=== PATIENT | female | born 1985 | race Caucasian/White ===

== ENCOUNTER 2017-12-05 11:32 | Outpatient (CLI) | payer OTHER, SELFPAY ==
--- NOTE | 2017-12-05 12:58 | PM.OBTRLD ---
Visit Information Visit Information Date of evaluation: 12/05/17 On-call OB Provider: Orin Higginbotham Reason for Evaluation: Yes non-stress test Comments/Additional reasons for admission: Patient with high blood pressure, with nausea, sweating, dizziness during a physical therapy. [place]. Patient is a 32-year-old 2 para 1 at 33 weeks 4 days. She has had been having [place] but no concerns of contractions. No change in vaginal discharge. No bleeding. Good movement. Vital Signs Vital Signs: Blood pressure 120/82, pulse of 95, temperature 97.8? Evaluation Evaluation Baseline heart rate: 135 Variability: Moderate (11-25) monitor accelerations: Present monitor decelerations: Absent Contraction Frequency (minutes): 3 Uterine Contraction Intensity: Mild Category of Tracing: I Diagnosis, Plan/Disposition Final Diagnosis (1) 33 weeks gestation of : Current Visit: Yes Status: Acute (2) Vasovagal near-syncope: Current Visit: Yes Status: Acute (3) Encounter for supervision of other normal , third trimester: Current Visit: Yes Status: Acute Plan/Disposition Plan: Patient with what sounds like a vasovagal episode during physical therapy. Evaluated here with blood pressures in the normal range and patient feeling well. She was discharged home to follow up with her primary OB provider at her regularly scheduled appointment.
== END 2017-12-05 12:45 | disposition home or self-care (01) ==
LOC: ED 11:35 → OB 14:51
PROVIDERS: Visit Provider Specialist
DX: Z34.83 Encounter for supervision of other normal pregnancy, third trimester (principal); R11.0 Nausea; R42 Dizziness and giddiness; Z3A.33 33 weeks gestation of pregnancy
CPT/HCPCS: 59025; G0378

== ENCOUNTER 2017-12-17 09:00 | Outpatient (RCR) | payer OTHER, SELFPAY ==
--- NOTE | 2017-12-03 15:00 | PT.OIE ---
Current Diagnoses Other specified related conditions, unspecified trimester (12/03/17) Other symptoms and signs involving the musculoskeletal system (12/03/17) state, incidental (12/03/17) Provider Visit Care Team Role Provider Type Reyna Lovett MD Attending Provider Non-Staff Specialty: Medical Address: [facility] [place], [address] Email: Physical Therapy Initial Evaluation PT-OP-A Visit Information Start: 12/03/17 09:28 Freq: Status: Active Protocol: Document 12/03/17 10:35 LRN (Rec: 12/03/17 12:29 LRN [id number]) Out-Patient Physical Therapy Visit Information Visit Information Visit Type Initial Evaluation Visit Note 05/10 Visit Start Time 10:35 Visit Stop Time 11:20 Total Visit Minutes 45 Visit Number 1 Number of DIRECT OF REAL ESTATE Visits 0 Evaluation Information Evaluation Date 12/03/17 PT-OP-B Current Condition Start: 12/03/17 09:28 Freq: Status: Active Protocol: Document 12/03/17 10:35 LRN (Rec: 12/03/17 12:29 LRN [id number]) Current Condition History of Current Condition Onset Date August 2017 Current Complaints Pt c/o sharp pains down the back of the legs, bilaterally. 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 The pain progressed from intermittent pain that alternated from side to side ( depending which side was on top in sidelie with the painful side on top) to now constant sharp low back pain. She is currently on maternity leave from her job and reports being on light duty. She has a 3.5 yr old son that she doesn't lift and carry. With her 1st she had a 1st degree tear, but no pain and stress incontinence. Prior Treatments and Tests She reports using a Belly Support brace, using heating pads, massages, and self stretches. She sleeps with a body pillow that helps some. Her self treatments provide pain relief for 2-3 days. She has taken antibiotics for UTI's. Treatment Goals Patient/Caregiver Goals Pt goal is to decrease the pain and sleep a little longer . Be able to turn with less pain. She can sleep 1-3 hours with sleep interruption due to both pain and the need to urinate. Prior Functional Status Baseline Function- ADL's Independent Baseline Function- Mobility Independent Baseline Function- Gait ~1/4 mile prior to onset of LBP and [place] contractions. Baseline Function- Recreation/Hobbies Home program of stretches. Baseline Function- Other Needs help putting pants on. 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 Functional Limitations- Mobility/Gait Can walk maximally ~1/4 mile. Functional Limitations- Work/School Currently on maternity leave due to her pain. 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 Lives in house with 13-14 stairs, with railing, and must stop 1/[address] to rest. Mother of a 3 yr old son. PT-OP-C Subjective Start: 12/03/17 09:28 Freq: Status: Active Protocol: Document 12/03/17 10:35 LRN (Rec: 12/03/17 12:29 LRN [id number]) Patient Questionnaires Oswestry Low Back Index Oswestry Score 62% Oswestry Impairment 60 to 79% Impaired (Score 60- 79) OP-PT Pain Assessment Pain Assessment Grid Paper Pain Assessment Grid Completed Yes Location Bilateral Upper Posterior Thigh Pain Location Details Posterior and Lateral thighs Intensity 4 Scale Used Numeric (1 - 10) Description Sharp Frequency Intermittent Variations/Patterns Pain worse with movement and with sitting > 1 hr, and prolonged positioning Pain Alleviating Factors Cold Lying Supine Other Pain Alleviating Factors Temporary relief with supine lying. Bilateral Lower Posterior Back Pain Location Details Low back along the Iliac Crest and Sacral region Intensity 8 Scale Used Numeric (1 - 10) Description Sharp Frequency Constant Radiating Location Back of thighs Variations/Patterns Pain worse with movement and with sitting > 1 hr, and prolonged positioning Pain Alleviating Factors Cold Lying Supine Other Pain Alleviating Factors Temporary relief with supine lying. Patient Stated Pain Goal Decrease pain Pain Behaviors Pain Behaviors Facial Grimacing PT-OP-G Mobility & Gait Start: 12/03/17 09:28 Freq: Status: Active Protocol: Document 12/03/17 10:35 LRN (Rec: 12/03/17 12:29 LRN [id number]) OP Mobility Evaluation Bed Mobility Rolling Independent. Pain behavior of grimacing. Supine to and from Sit Independent. Pain behavior of grimacing. Transfers Sit to Stand Independent. Pain behavior of grimacing. OP Gait Assessment Gait Gait Assistance Required: Independent Able to Maintain Weight Bearing Status Yes During Gait Assistive Devices Assistive Device None Gait Deviations General Gait Pattern Lateral Trunk Lean Factors Limiting Gait Function Factors Limiting Gait Function Pain Comments Gait Comments Trendelenburg type gait to the right. PT-OP-H Neuro Start: 12/03/17 09:28 Freq: Status: Active Protocol: Document 12/03/17 10:35 LRN (Rec: 12/03/17 12:29 LRN [id number]) Sensation Evaluation Gross Sensation Gross Sensation WNL PT-OP-I Pelvic Floor Start: 12/03/17 09:28 Freq: Status: Active Protocol: Document 12/03/17 10:35 LRN (Rec: 12/03/17 12:29 LRN [id number]) Pelvic Floor Assessment Urine Leakage Size Small Leakage Cause Exercise PT-OP-J Posture/Palpation/Skin Start: 12/03/17 09:28 Freq: Status: Active Protocol: Document 12/03/17 10:35 LRN (Rec: 12/03/17 12:29 LRN [id number]) Posture Evaluation Position Standing Evaluation View Posterior, Anterior, & Lateral Head/C-Spine Posture Neutral Position T-Spine Posture Flattened L-Spine Posture Increased Lordosis Shoulder Posture (R) Elevated Pelvis Posture (L) PSIS Posterior (L) ASIS Posterior Knee Posture (L) Genu Recurvatum (R) Genu Recurvatum Ankle/Foot Posture (L) Calcaneal Eversion (R) Calcaneal Eversion Palpation Assessment Location One Palpation Location Low Back Palpation Findings Tenderness Palpation Details Sacral PA and at Bilateral SI joint line. PT-OP-K Range of Motion Start: 12/03/17 09:28 Freq: Status: Active Protocol: Document 12/03/17 10:35 LRN (Rec: 12/03/17 12:29 LRN [id number]) Hip Goniometric Range of Motion Hip ROM Limitations Hip ROM Limitations Pain Comments Bilateral hip PSLR is 60 deg's with onset of sharp pains. Knee Goniometric Range of Motion Knee ROM Limitations Comments NONE PT-OP-M Strength Start: 08/07/18 09:28 Freq: Status: Active Protocol: Document 12/03/17 10:35 LRN (Rec: 12/03/17 12:29 LRN [id number]) Trunk Strength Trunk Manual Muscle Testing Core Stabilization Pt did not demonstrate ability to maintain neutral spine position with moving. Pt was able to demonstrate a TA contraction in sidelie. Hip Strength Hip Manual Muscle Testing Right Reason Not Measured Pain Comments Isometric hip AB & AD was 4/5, limited by pain. Left Reason Not Measured Pain Comments Isometric hip AB & AD was 4/5, limited by pain. PT-OP-Q Treatments Start: 12/03/17 09:28 Freq: Status: Active Protocol: Document 12/03/17 10:35 LRN (Rec: 12/03/17 12:29 LRN [id number]) Therapeutic Exercises Sidelying Exercises 1 Sidelying Exercise Name TA contraction Side bilateral Comments Training Other Exercises 2 Other Exercise Name Stretching Comments Rock Back stretch 1 Other Exercise Name 4-Point ex Side bilateral Comments TA Contraction Therapeutic Activity Therapeutic Activity 1 Name Transfers & Positioning Comments Training for Semi-sidelie for sleeping and Supine > Sit Log roll training. Self-Care/Home Management Treatment Education Patient Education Home Exercise Program Pain Management Posture Activities Self-Care/Home Management Activities Issued and Reviewed 4-pt TA contraction, and posturing against a wall. I/S pt in use of cryotherapy at home for the pain. PT-OP-T Assessment and Plan Start: 12/03/17 09:28 Freq: Status: Active Protocol: Document 12/03/17 10:35 LRN (Rec: 12/03/17 12:29 LRN [id number]) Physical Therapy Assessment Rehab Potential Rehabilitation Potential Fair Evaluation Complexity Number of Personal Factors/Comorbidities 3 or More Number of Body Systems Impaired 4 or More Clinical Presentation at Evaluation Unstable Impairments Impairments Activity Tolerance Functional Activities Functional Mobility Pain Posture ROM Soft Tissue Mobility Strength Transfers Other Concerns Age Related Concerns Impact on work and family. Barriers to Rehabilitation Progressing Goals Five Impairment Poor body mechanics Short Term Goal (STG) Pt will be educated in proper body mechanics. STG Duration 12/23/17 (3 weeks) Four Impairment Poor posture Short Term Goal (STG) Pt will be educated in proper standing/sitting posture to minimize onset of pain with prolonged positioning. STG Duration 12/10/17 Three Impairment Pain limiting sleep Short Term Goal (STG) Pt able to position in bed comfortably to go to sleep. STG Duration 12/23/17 (3 weeks) Director Of Health Education Goal (LTG) Increase pelvic/trunk stability to improve pt's tolerance to sleep and improved tolerance to static positioning in bed. LTG Duration 01/13/18 (6 weeks) Two Impairment Difficulty dressing (donning pants) due to poor hip mobility. Short Term Goal (STG) Pt educated in HEP to improve hip mobility for ease of donning pants. STG Duration 12/23/17 (3 weeks) One Impairment Patient lacks appropriate HEP Mcc Goal (LTG) Pt educated in self care HEP for pelvic/trunk stability. 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 Pt may benefit from a SI Belt for pelvic stability in addition to her belly support belt. Aquatic exercise would be a good method of achieving stability now that she is almost 33 weeks into her ; therefore we will try to get her into one session before her due date. Therapy 3x/week would be most beneficial, but because of her distance of travel we will see the pt 2x/week for her rehabilitation. I would recommend the pt be referred back to physical therapy post- when she is medically appropriate for further core/ pelvic stabilization and possibly Pelvic Floor rehabilitation. Physical Therapy Plan Frequency and Duration Frequency of Treatment 2x/Week Plan of Care Start Date 12/03/17 Plan of Care End Date 01/14/18 Therapeutic Interventions Therapeutic Interventions Aquatic Therapy Home Exercise Program Manual Therapy Neuromuscular Re-education Patient/Caregiver Education Self-Care/Home Management Soft Tissue Mobilization Taping Therapeutic Activities Therapeutic Exercises Modalities Cold Pack/Ice Massage Next Visit Focus/Plan Next Note Type Treatment Note Next Visit Plan Check hip AB ROM. Progress Pelvic and core stabilization in private room if needed (LE Roll in/outs, TA strengthening , LB flexion stretching), progress to Shuttle, Dual [place], Sit bike; f/b trunk flex stretching. Add LE neural stretch and if needed stretch to hip AD's. End with STM of LB/SIJ & manual mob of sacrum into extension and ice if needed.
--- NOTE | 2017-12-03 16:49 | PT.OPPOC ---
Current Diagnoses Other specified related conditions, unspecified trimester (12/03/17) Other symptoms and signs involving the musculoskeletal system (12/03/17) state, incidental (12/03/17) Provider Visit Care Team Role Provider Type Reyna Lovett MD Attending Provider Non-Staff Specialty: Medical Address: [facility] [place], [address] Email: Plan Of Care PT-OP-T Assessment and Plan Start: 12/03/17 09:28 Freq: Status: Active Protocol: Document 12/03/17 10:35 LRN (Rec: 12/03/17 12:29 LRN [id number]) Physical Therapy Assessment Rehab Potential Rehabilitation Potential Fair Evaluation Complexity Number of Personal Factors/Comorbidities 3 or More Number of Body Systems Impaired 4 or More Clinical Presentation at Evaluation Unstable Impairments Impairments Activity Tolerance Functional Activities Functional Mobility Pain Posture ROM Soft Tissue Mobility Strength Transfers Other Concerns Age Related Concerns Impact on work and family. Barriers to Rehabilitation Progressing Goals Five Impairment Poor body mechanics Short Term Goal (STG) Pt will be educated in proper body mechanics. STG Duration 12/23/17 (3 weeks) Four Impairment Poor posture Short Term Goal (STG) Pt will be educated in proper standing/sitting posture to minimize onset of pain with prolonged positioning. STG Duration 12/10/17 Three Impairment Pain limiting sleep Short Term Goal (STG) Pt able to position in bed comfortably to go to sleep. STG Duration 12/23/17 (3 weeks) Care Home Goal (LTG) Increase pelvic/trunk stability to improve pt's tolerance to sleep and improved tolerance to static positioning in bed. LTG Duration 01/13/18 (6 weeks) Two Impairment Difficulty dressing (donning pants) due to poor hip mobility. Short Term Goal (STG) Pt educated in HEP to improve hip mobility for ease of donning pants. STG Duration 12/23/17 (3 weeks) One Impairment Patient lacks appropriate HEP Services Advisor Goal (LTG) Pt educated in self care HEP for pelvic/trunk stability. 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 Pt may benefit from a SI Belt for pelvic stability in addition to her belly support belt. Aquatic exercise would be a good method of achieving stability now that she is almost 33 weeks into her ; therefore we will try to get her into one session before her due date. Therapy 3x/week would be most beneficial, but because of her distance of travel we will see the pt 2x/week for her rehabilitation. I would recommend the pt be referred back to physical therapy post- when she is medically appropriate for further core/ pelvic stabilization and possibly Pelvic Floor rehabilitation. Physical Therapy Plan Frequency and Duration Frequency of Treatment 2x/Week Plan of Care Start Date 12/03/17 Plan of Care End Date 01/14/18 Therapeutic Interventions Therapeutic Interventions Aquatic Therapy Home Exercise Program Manual Therapy Neuromuscular Re-education Patient/Caregiver Education Self-Care/Home Management Soft Tissue Mobilization Taping Therapeutic Activities Therapeutic Exercises Modalities Cold Pack/Ice Massage Next Visit Focus/Plan Next Note Type Treatment Note Next Visit Plan Check hip AB ROM. Progress Pelvic and core stabilization in private room if needed (LE Roll in/outs, TA strengthening , LB flexion stretching), progress to Shuttle, Dual [place], Sit bike; f/b trunk flex stretching. Add LE neural stretch and if needed stretch to hip AD's. End with STM of LB/SIJ & manual mob of sacrum into extension and ice if needed. Plan of Care Dates Plan of Care Start Date 12/03/17 Plan of Care End Date 01/14/18 Please Sign and Return: I have reviewed this Plan of Care and certify that the skilled therapy services above are required to meet the patient?s needs. Physician Signature Date Printed Name and Credentials Clinical Instructor Signature Printed Name and Credentials
[2017-12-05 10:39] VITALS: BP 140/90; O2SAT 95
[2017-12-05 12:58] VITALS: BP 140/90; PULSE 103; O2SAT 95
--- NOTE | 2017-12-05 13:48 | PT.OTN ---
Current Diagnoses Other specified related conditions, unspecified trimester (12/05/17) state, incidental (12/05/17) Physical Therapy Treatment Note PT-OP-A Visit Information Start: 12/03/17 09:28 Freq: Status: Active Protocol: Document 12/05/17 10:39 LRN (Rec: 12/05/17 11:20 LRN [id number]) Out-Patient Physical Therapy Visit Information Visit Information Visit Type Treatment Note Visit Note 06/10 Visit Start Time 10:39 Visit Stop Time 11:30 Total Visit Minutes 51 Visit Number 2 Number of MANAGER ADULT Visits 0 Evaluation Information Evaluation Date 12/03/17 PT-OP-B Current Condition Start: 12/03/17 09:28 Freq: Status: Active Protocol: Document 12/03/17 10:35 LRN (Rec: 12/03/17 12:29 LRN [id number]) Current Condition History of Current Condition Onset Date August 2017 Current Complaints Pt c/o sharp pains down the back of the legs, bilaterally. 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 The pain progressed from intermittent pain that alternated from side to side ( depending which side was on top in sidelie with the painful side on top) to now constant sharp low back pain. She is currently on maternity leave from her job and reports being on light duty. She has a 3.5 yr old son that she doesn't lift and carry. With her 1st she had a 1st degree tear, but no pain and stress incontinence. Prior Treatments and Tests She reports using a Belly Support brace, using heating pads, massages, and self stretches. She sleeps with a body pillow that helps some. Her self treatments provide pain relief for 2-3 days. She has taken antibiotics for UTI's. Treatment Goals Patient/Caregiver Goals Pt goal is to decrease the pain and sleep a little longer . Be able to turn with less pain. She can sleep 1-3 hours with sleep interruption due to both pain and the need to urinate. Prior Functional Status Baseline Function- ADL's Independent Baseline Function- Mobility Independent Baseline Function- Gait ~1/4 mile prior to onset of LBP and [place] contractions. Baseline Function- Recreation/Hobbies Home program of stretches. Baseline Function- Other Needs help putting pants on. Current Functional Impairments (Reported) Functional Limitations- ADL's Sleeping, sits 1/2 - 1 hr, stand 1 hr to cook helper pastry, needs help with donning pants. Functional Limitations- Mobility/Gait Can walk maximally ~1/4 mile. Functional Limitations- Work/School Currently on maternity leave due to her pain. 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 Lives in house with 13-14 stairs, with railing, and must stop 1/[address] to rest. Mother of a 3 yr old son. PT-OP-C Subjective Start: 12/03/17 09:28 Freq: Status: Active Protocol: Document 12/05/17 10:39 LRN (Rec: 12/05/17 11:20 LRN [id number]) OP-PT Subjective Patient Comments Patient Comments NO new complaints, pt 9 minutes late for appt. PT-OP-G Mobility & Gait Start: 12/03/17 09:28 Freq: Status: Active Protocol: Document 12/03/17 10:35 LRN (Rec: 12/03/17 12:29 LRN [id number]) OP Mobility Evaluation Bed Mobility Rolling Independent. Pain behavior of grimacing. Supine to and from Sit Independent. Pain behavior of grimacing. Transfers Sit to Stand Independent. Pain behavior of grimacing. OP Gait Assessment Gait Gait Assistance Required: Independent Able to Maintain Weight Bearing Status Yes During Gait Assistive Devices Assistive Device None Gait Deviations General Gait Pattern Lateral Trunk Lean Factors Limiting Gait Function Factors Limiting Gait Function Pain Comments Gait Comments Trendelenburg type gait to the right. PT-OP-H Neuro Start: 12/03/17 09:28 Freq: Status: Active Protocol: Document 12/05/17 10:39 LRN (Rec: 12/05/17 13:40 LRN [id number]) Vital Signs Blood Pressure Sitting Blood Pressure (90/60-120/80 mmHg) 140/90 H Blood Pressure Source Manual Cuff Right Upper Extremity Oxygen Pulse Oximetry with Activity (%) (95-100 95 %) Oxygen Delivery Method Room Air Comments Vital Signs Comments After 5' Rest from 1st BP reading in Slight recline: BP 145/98, HR 107-113 After 8' Rest in Sit with legs elevated BP 140/90, HR 103-114 PT-OP-I Pelvic Floor Start: 12/03/17 09:28 Freq: Status: Active Protocol: Document 12/03/17 10:35 LRN (Rec: 12/03/17 12:29 LRN [id number]) Pelvic Floor Assessment Urine Leakage Size Small Leakage Cause Exercise PT-OP-J Posture/Palpation/Skin Start: 12/03/17 09:28 Freq: Status: Active Protocol: Document 12/03/17 10:35 LRN (Rec: 12/03/17 12:29 LRN [id number]) Posture Evaluation Position Standing Evaluation View Posterior, Anterior, & Lateral Head/C-Spine Posture Neutral Position T-Spine Posture Flattened L-Spine Posture Increased Lordosis Shoulder Posture (R) Elevated Pelvis Posture (L) PSIS Posterior (L) ASIS Posterior Knee Posture (L) Genu Recurvatum (R) Genu Recurvatum Ankle/Foot Posture (L) Calcaneal Eversion (R) Calcaneal Eversion Palpation Assessment Location One Palpation Location Low Back Palpation Findings Tenderness Palpation Details Sacral PA and at Bilateral SI joint line. PT-OP-K Range of Motion Start: 12/03/17 09:28 Freq: Status: Active Protocol: Document 12/03/17 10:35 LRN (Rec: 12/03/17 12:29 LRN [id number]) Hip Goniometric Range of Motion Hip ROM Limitations Hip ROM Limitations Pain Comments Bilateral hip PSLR is 60 deg's with onset of sharp pains. Knee Goniometric Range of Motion Knee ROM Limitations Comments NONE PT-OP-M Strength Start: 12/03/17 09:28 Freq: Status: Active Protocol: Document 12/03/17 10:35 LRN (Rec: 12/03/17 12:29 LRN [id number]) Trunk Strength Trunk Manual Muscle Testing Core Stabilization Pt did not demonstrate ability to maintain neutral spine position with moving. Pt was able to demonstrate a TA contraction in sidelie. Hip Strength Hip Manual Muscle Testing Right Reason Not Measured Pain Comments Isometric hip AB & AD was 4/5, limited by pain. Left Reason Not Measured Pain Comments Isometric hip AB & AD was 4/5, limited by pain. PT-OP-Q Treatments Start: 12/03/17 09:28 Freq: Status: Active Protocol: Document 12/05/17 10:39 LRN (Rec: 12/05/17 11:20 LRN [id number]) Therapeutic Exercises Supine Exercises 1 Supine Exercise Name Stretch hip AD for ROM check Side bilateral Reps/Minutes 2' Sidelying Exercises 1 Sidelying Exercise Name TA w/Clamshell Side left Comments Stopped due to pain on bottom hip Sitting Exercises 1 Sitting Exercise Name Deep breathing with LE Roll in /out Reps/Minutes 10x Comments Extra time taken to review deep breathing & w/ex for pt's tolerance. Manual Therapy Treatment Soft Tissue Mobilization 1 Body Location Sacral lateral borders and upper gluteals Mobilization Type Strumming Sustained Pressure Comments Prone on prone pillow. Joint Mobilizations 1 Joint MFR to correct a flexed Sacrum Grade II Body Position Prone on pillow Comments 3x with deep breaths, painfree PT-OP-T Assessment and Plan Start: 12/03/17 09:28 Freq: Status: Active Protocol: Document 12/05/17 10:39 LRN (Rec: 12/05/17 11:20 LRN [id number]) Physical Therapy Assessment Goals Five Impairment Poor body mechanics Short Term Goal (STG) Pt will be educated in proper body mechanics. STG Duration 12/23/17 (3 weeks) Four Impairment Poor posture Short Term Goal (STG) Pt will be educated in proper standing/sitting posture to minimize onset of pain with prolonged positioning. STG Duration 12/10/17 Three Impairment Pain limiting sleep Short Term Goal (STG) Pt able to position in bed comfortably to go to sleep. STG Duration 12/23/17 (3 weeks) Assisted Goal (LTG) Increase pelvic/trunk stability to improve pt's tolerance to sleep and improved tolerance to static positioning in bed. LTG Duration 01/13/18 (6 weeks) Two Impairment Difficulty dressing (donning pants) due to poor hip mobility. Short Term Goal (STG) Pt educated in HEP to improve hip mobility for ease of donning pants. STG Duration 12/23/17 (3 weeks) One Impairment Patient lacks appropriate HEP Assisted Goal (LTG) Pt educated in self care HEP for pelvic/trunk stability. LTG Duration 01/13/18 (6 weeks) Assessment Summary Assessment Pt was able to perform sitting LE roll in/out with comfort with practice. Pt became lightheaded and nauseous while in prone on pillow after STM & JMT of sacrum. Pt BP increased and pt was monitored for response to STM ~ 30' with pt in sitting and long sit. Pt not put in Sidelie due to hip pain. Pt referred to ER. Physical Therapy Plan Frequency and Duration Frequency of Treatment 2x/Week Plan of Care Start Date 12/03/17 Plan of Care End Date 01/14/18 Therapeutic Interventions Therapeutic Interventions Aquatic Therapy Home Exercise Program Manual Therapy Neuromuscular Re-education Patient/Caregiver Education Self-Care/Home Management Soft Tissue Mobilization Taping Therapeutic Activities Therapeutic Exercises Modalities Cold Pack/Ice Massage Next Visit Focus/Plan Next Note Type Treatment Note Next Visit Plan Take BP/HR to start. Check on health status since last visit. Discuss Pool therapy option. Progress Pelvic and core stabilization in private room if needed (TA strengthening, LB flexion stretching), Sit bike; f/b trunk flex stretching. Add LE neural stretch in sitting. End with sitting STM of LB/SIJ & manual mob of sacrum into extension and ice if needed.
[2017-12-11 09:45] VITALS: BP 110/84; PULSE 108
--- NOTE | 2017-12-11 12:32 | PT.OTN ---
Current Diagnoses Other specified related conditions, unspecified trimester (12/11/17) state, incidental (12/11/17) Physical Therapy Treatment Note PT-OP-A Visit Information Start: 12/03/17 09:28 Freq: Status: Active Protocol: Document 12/11/17 10:41 LRN (Rec: 12/11/17 12:03 LRN [id number]) Out-Patient Physical Therapy Visit Information Visit Information Visit Type Treatment Note Visit Note 07/08 Visit Start Time 10:41 Visit Stop Time 11:31 Total Visit Minutes 50 Visit Number 3 Number of RECREATION OFFICER Visits 0 Evaluation Information Evaluation Date 12/03/17 PT-OP-B Current Condition Start: 12/03/17 09:28 Freq: Status: Active Protocol: Document 12/03/17 10:35 LRN (Rec: 12/03/17 12:29 LRN [id number]) Current Condition History of Current Condition Onset Date August 2017 Current Complaints Pt c/o sharp pains down the back of the legs, bilaterally. 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 The pain progressed from intermittent pain that alternated from side to side ( depending which side was on top in sidelie with the painful side on top) to now constant sharp low back pain. She is currently on maternity leave from her job and reports being on light duty. She has a 3.5 yr old son that she doesn't lift and carry. With her 1st she had a 1st degree tear, but no pain and stress incontinence. Prior Treatments and Tests She reports using a Belly Support brace, using heating pads, massages, and self stretches. She sleeps with a body pillow that helps some. Her self treatments provide pain relief for 2-3 days. She has taken antibiotics for UTI's. Treatment Goals Patient/Caregiver Goals Pt goal is to decrease the pain and sleep a little longer . Be able to turn with less pain. She can sleep 1-3 hours with sleep interruption due to both pain and the need to urinate. Prior Functional Status Baseline Function- ADL's Independent Baseline Function- Mobility Independent Baseline Function- Gait ~1/4 mile prior to onset of LBP and [place] contractions. Baseline Function- Recreation/Hobbies Home program of stretches. Baseline Function- Other Needs help putting pants on. 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 Functional Limitations- Mobility/Gait Can walk maximally ~1/4 mile. Functional Limitations- Work/School Currently on maternity leave due to her pain. 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 Lives in house with 13-14 stairs, with railing, and must stop 1/[address] to rest. Mother of a 3 yr old son. PT-OP-C Subjective Start: 12/03/17 09:28 Freq: Status: Active Protocol: Document 12/11/17 10:41 LRN (Rec: 12/11/17 12:03 LRN [id number]) OP-PT Subjective Patient Comments Patient Comments After last session pt admitted to ER. She states she was taken to L&D for 1.5 hrs due to contractions and baby kept moving. BP normalized to 114/ 82 after ~ 1 hr. EKG taken showed she was okay. At Dr. kaufman yesterday her BP was 145 /89. Pt okay'd to continue therapy. PT-OP-G Mobility & Gait Start: 12/03/17 09:28 Freq: Status: Active Protocol: Document 12/03/17 10:35 LRN (Rec: 12/03/17 12:29 LRN [id number]) OP Mobility Evaluation Bed Mobility Rolling Independent. Pain behavior of grimacing. Supine to and from Sit Independent. Pain behavior of grimacing. Transfers Sit to Stand Independent. Pain behavior of grimacing. OP Gait Assessment Gait Gait Assistance Required: Independent Able to Maintain Weight Bearing Status Yes During Gait Assistive Devices Assistive Device None Gait Deviations General Gait Pattern Lateral Trunk Lean Factors Limiting Gait Function Factors Limiting Gait Function Pain Comments Gait Comments Trendelenburg type gait to the right. PT-OP-H Neuro Start: 12/03/17 09:28 Freq: Status: Active Protocol: Document 12/05/17 10:39 LRN (Rec: 12/05/17 13:40 LRN [id number]) Vital Signs Blood Pressure Sitting Blood Pressure (90/60-120/80 mmHg) 140/90 H Blood Pressure Source Manual Cuff Right Upper Extremity Oxygen Pulse Oximetry with Activity (%) (95-100 95 %) Oxygen Delivery Method Room Air Comments Vital Signs Comments After 5' Rest from 1st BP reading in Slight recline: BP 145/98, HR 107-113 After 8' Rest in Sit with legs elevated BP 140/90, HR 103-114 PT-OP-I Pelvic Floor Start: 12/03/17 09:28 Freq: Status: Active Protocol: Document 12/03/17 10:35 LRN (Rec: 12/03/17 12:29 LRN [id number]) Pelvic Floor Assessment Urine Leakage Size Small Leakage Cause Exercise PT-OP-J Posture/Palpation/Skin Start: 12/03/17 09:28 Freq: Status: Active Protocol: Document 12/03/17 10:35 LRN (Rec: 12/03/17 12:29 LRN [id number]) Posture Evaluation Position Standing Evaluation View Posterior, Anterior, & Lateral Head/C-Spine Posture Neutral Position T-Spine Posture Flattened L-Spine Posture Increased Lordosis Shoulder Posture (R) Elevated Pelvis Posture (L) PSIS Posterior (L) ASIS Posterior Knee Posture (L) Genu Recurvatum (R) Genu Recurvatum Ankle/Foot Posture (L) Calcaneal Eversion (R) Calcaneal Eversion Palpation Assessment Location One Palpation Location Low Back Palpation Findings Tenderness Palpation Details Sacral PA and at Bilateral SI joint line. PT-OP-K Range of Motion Start: 12/03/17 09:28 Freq: Status: Active Protocol: Document 12/11/17 10:41 LRN (Rec: 12/11/17 12:03 LRN [id number]) Hip Goniometric Range of Motion Hip Measured in Degrees Right Active Testing Position Sitting Internal Rotation 10 External Rotation 40 Left Active Testing Position Sitting Internal Rotation 10 External Rotation 40 PT-OP-M Strength Start: 12/03/17 09:28 Freq: Status: Active Protocol: Document 12/03/17 10:35 LRN (Rec: 12/03/17 12:29 LRN [id number]) Trunk Strength Trunk Manual Muscle Testing Core Stabilization Pt did not demonstrate ability to maintain neutral spine position with moving. Pt was able to demonstrate a TA contraction in sidelie. Hip Strength Hip Manual Muscle Testing Right Reason Not Measured Pain Comments Isometric hip AB & AD was 4/5, limited by pain. Left Reason Not Measured Pain Comments Isometric hip AB & AD was 4/5, limited by pain. PT-OP-Q Treatments Start: 12/03/17 09:28 Freq: Status: Active Protocol: Document 12/11/17 10:41 LRN (Rec: 12/11/17 12:03 LRN [id number]) Gym Equipment Therapeutic Ball 4 Exercise Details Squats Ball Size/Color Green Body Position Standing Reps/Duration 10x 3 Exercise Details CW & CCW Ball Size/Color Green Body Position Sitting Reps/Duration 10x Comments Painfree range 2 Exercise Details Side to side Ball Size/Color Green Body Position Sitting Reps/Duration 15x Comments Painfree range 1 Exercise Details Pelvic tilts Posterior & Neutral/Posterior Ball Size/Color Green Body Position Sitting Reps/Duration 10x Comments Painfree range Therapeutic Exercises Sidelying Exercises 1 Sidelying Exercise Name TA & TA w/Clamshell Side bilateral Reps/Minutes 5x each Comments Painfree range Sitting Exercises 2 Sitting Exercise Name Hip IR/ER AROM Side bilateral Comments Painfree range 1 Sitting Exercise Name Deep breathing with LE Roll in /out & PF contraction Reps/Minutes 10x Comments Extra time taken to review deep breathing & w/ex for pt's tolerance. Other Exercises 2 Other Exercise Name Trunk flexion stretch Comments Rock Back & child's pose stretch 1 Other Exercise Name 4-Point TA ex Side bilateral Comments TA Contraction Manual Therapy Treatment Soft Tissue Mobilization 1 Body Location Sacral lateral borders and upper gluteals Mobilization Type Strumming Sustained Pressure Intensity/Depth Superficial Body Position Sidelying Comments Left Side PT-OP-T Assessment and Plan Start: 12/03/17 09:28 Freq: Status: Active Protocol: Document 12/11/17 10:41 LRN (Rec: 12/11/17 12:03 LRN [id number]) Physical Therapy Assessment Impairments Impairments Activity Tolerance Functional Activities Functional Mobility Pain Posture ROM Soft Tissue Mobility Strength Transfers Goals Five Impairment Poor body mechanics Short Term Goal (STG) Pt will be educated in proper body mechanics. STG Duration 12/23/17 (3 weeks) Four Impairment Poor posture Short Term Goal (STG) Pt will be educated in proper standing/sitting posture to minimize onset of pain with prolonged positioning. STG Duration 12/10/17 Two Impairment Difficulty dressing (donning pants) due to poor hip mobility. Short Term Goal (STG) Pt educated in HEP to improve hip mobility for ease of donning pants. STG Duration 12/23/17 (3 weeks) Assessment Summary Assessment Pt HR/BP was her normal to start at HR 108, BP 110/84. Post therapy HR 96, BP 120/82 after sidelie to sit. Good tolerance to ex, pt appears to still be learning her limits of mobility to prevent pain onset. Pt had onset of [place] contractions x2 during therapy, calmed with rest. Physical Therapy Plan Frequency and Duration Frequency of Treatment 2x/Week Plan of Care Start Date 12/03/17 Plan of Care End Date 01/14/18 Therapeutic Interventions Therapeutic Interventions Aquatic Therapy Home Exercise Program Manual Therapy Neuromuscular Re-education Patient/Caregiver Education Self-Care/Home Management Soft Tissue Mobilization Taping Therapeutic Activities Therapeutic Exercises Modalities Cold Pack/Ice Massage Next Visit Focus/Plan Next Note Type Treatment Note Next Visit Plan Take BP/HR to start. Discuss Pool therapy option. Add LE neural stretch in sitting. Progress Pelvic and core stabilization in private room if needed (TA strengthening, LB flexion stretching), ?Sit bike; f/b trunk flex stretching. End with cryotherapy or sitting STM of LB/SIJ & manual mob of sacrum into extension.
[2017-12-17 09:05] VITALS: BP 124/82
--- NOTE | 2017-12-17 16:31 | PT.OTN ---
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 The pain progressed from intermittent pain that alternated from side to side ( depending which side was on top in sidelie with the painful side on top) to now constant sharp low back pain. She is currently on maternity leave from her job and reports being on light duty. She has a 3.5 yr old son that she doesn't lift and carry. With her 1st she had a 1st degree tear, but no pain and stress incontinence. Prior Treatments and Tests She reports using a Belly Support brace, using heating pads, massages, and self stretches. She sleeps with a body pillow that helps some. Her self treatments provide pain relief for 2-3 days. She has taken antibiotics for UTI's. Treatment Goals Patient/Caregiver Goals Pt goal is to decrease the pain and sleep a little longer . Be able to turn with less pain. She can sleep 1-3 hours with sleep interruption due to both pain and the need to urinate. Prior Functional Status Baseline Function- ADL's Independent Baseline Function- Mobility Independent Baseline Function- Gait ~1/4 mile prior to onset of LBP and Tariq Henderson contractions. Baseline Function- Recreation/Hobbies Home program of stretches. Baseline Function- Other Needs help putting pants on. 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 Functional Limitations- Mobility/Gait Can walk maximally ~1/4 mile. Functional Limitations- Work/School Currently on maternity leave due to her pain. 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 Lives in house with 13-14 stairs, with railing, and must stop 1/[address] to rest. Mother of a 3 yr old son. PT-OP-C Subjective Start: 12/03/17 09:28 Freq: Status: Active Protocol: Document 12/17/17 09:05 LRN (Rec: 12/17/17 16:31 LRN [id number]) OP-PT Subjective Patient Comments Patient Comments States she felt better after last session, but pain returns . PT-OP-G Mobility & Gait Start: 12/03/17 09:28 Freq: Status: Active Protocol: Document 12/03/17 10:35 LRN (Rec: 12/03/17 12:29 LRN [id number]) OP Mobility Evaluation Bed Mobility Rolling Independent. Pain behavior of grimacing. Supine to and from Sit Independent. Pain behavior of grimacing. Transfers Sit to Stand Independent. Pain behavior of grimacing. OP Gait Assessment Gait Gait Assistance Required: Independent Able to Maintain Weight Bearing Status Yes During Gait Assistive Devices Assistive Device None Gait Deviations General Gait Pattern Lateral Trunk Lean Factors Limiting Gait Function Factors Limiting Gait Function Pain Comments Gait Comments Trendelenburg type gait to the right. PT-OP-H Neuro Start: 12/03/17 09:28 Freq: Status: Active Protocol: Document 12/05/17 10:39 LRN (Rec: 12/05/17 13:40 LRN [id number]) Vital Signs Blood Pressure Sitting Blood Pressure (90/60-120/80 mmHg) 140/90 H Blood Pressure Source Manual Cuff Right Upper Extremity Oxygen Pulse Oximetry with Activity (%) (95-100 95 %) Oxygen Delivery Method Room Air Comments Vital Signs Comments After 5' Rest from 1st BP reading in Slight recline: BP 145/98, HR 107-113 After 8' Rest in Sit with legs elevated BP 140/90, HR 103-114 PT-OP-I Pelvic Floor Start: 12/03/17 09:28 Freq: Status: Active Protocol: Document 12/03/17 10:35 LRN (Rec: 12/03/17 12:29 LRN [id number]) Pelvic Floor Assessment Urine Leakage Size Small Leakage Cause Exercise PT-OP-J Posture/Palpation/Skin Start: 12/03/17 09:28 Freq: Status: Active Protocol: Document 12/03/17 10:35 LRN (Rec: 12/03/17 12:29 LRN [id number]) Posture Evaluation Position Standing Evaluation View Posterior, Anterior, & Lateral Head/C-Spine Posture Neutral Position T-Spine Posture Flattened L-Spine Posture Increased Lordosis Shoulder Posture (R) Elevated Pelvis Posture (L) PSIS Posterior (L) ASIS Posterior Knee Posture (L) Genu Recurvatum (R) Genu Recurvatum Ankle/Foot Posture (L) Calcaneal Eversion (R) Calcaneal Eversion Palpation Assessment Location One Palpation Location Low Back Palpation Findings Tenderness Palpation Details Sacral PA and at Bilateral SI joint line. PT-OP-K Range of Motion Start: 12/03/17 09:28 Freq: Status: Active Protocol: Document 12/11/17 10:41 LRN (Rec: 12/11/17 12:03 LRN [id number]) Hip Goniometric Range of Motion Hip Measured in Degrees Right Active Testing Position Sitting Internal Rotation 10 External Rotation 40 Left Active Testing Position Sitting Internal Rotation 10 External Rotation 40 PT-OP-M Strength Start: 12/03/17 09:28 Freq: Status: Active Protocol: Document 12/03/17 10:35 LRN (Rec: 12/03/17 12:29 LRN [id number]) Trunk Strength Trunk Manual Muscle Testing Core Stabilization Pt did not demonstrate ability to maintain neutral spine position with moving. Pt was able to demonstrate a TA contraction in sidelie. Hip Strength Hip Manual Muscle Testing Right Reason Not Measured Pain Comments Isometric hip AB & AD was 4/5, limited by pain. Left Reason Not Measured Pain Comments Isometric hip AB & AD was 4/5, limited by pain. PT-OP-Q Treatments Start: 12/03/17 09:28 Freq: Status: Active Protocol: Document 12/17/17 09:05 LRN (Rec: 12/17/17 16:31 LRN [id number]) Therapeutic Exercises Sidelying Exercises 2 Sidelying Exercise Name LE Neural stretch Side bilateral 1 Sidelying Exercise Name TA & TA w/Clamshell Side bilateral Reps/Minutes 10x each Comments Painfree range Manual Therapy Treatment Soft Tissue Mobilization 1 Body Location Sacral lateral borders and upper gluteals Mobilization Type Strumming Sustained Pressure Intensity/Depth Superficial Body Position Sidelying Comments Left Sidelie. Ice massage prior to STM. Joint Mobilizations 1 Joint MFR to correct a flexed Sacrum Grade I Body Position Sidelying Comments 3x with deep breaths, painfree Self-Care/Home Management Treatment Education Patient Education Home Exercise Program Activities Self-Care/Home Management Activities Issued and reviewed LE hamstring/neural stretch and 4 point trunk flex stretch. PT-OP-R Modalities Start: 12/03/17 09:28 Freq: Status: Active Protocol: Document 12/17/17 09:05 LRN (Rec: 12/17/17 16:31 LRN [id number]) Hot Pack/Cold Pack Treatment Ice Massage Location Low back at sacral level Patient Position Sidelying Treatment Duration (minutes) 5 Patient Tolerance Good Comments Left sidelying. Ice massage done one side at a time prior to STM. PT-OP-T Assessment and Plan Start: 12/03/17 09:28 Freq: Status: Active Protocol: Document 12/17/17 09:05 LRN (Rec: 12/17/17 16:31 LRN [id number]) Physical Therapy Assessment Rehab Potential Rehabilitation Potential Fair Impairments Impairments Activity Tolerance Functional Activities Functional Mobility Pain Posture ROM Soft Tissue Mobility Strength Transfers Other Concerns Age Related Concerns Impact on work and family. Barriers to Rehabilitation Progressing Goals Five Impairment Poor body mechanics Short Term Goal (STG) Pt will be educated in proper body mechanics. STG Duration 12/23/17 (3 weeks) Four Impairment Poor posture Short Term Goal (STG) Pt will be educated in proper standing/sitting posture to minimize onset of pain with prolonged positioning. STG Duration 12/10/17 Three Impairment Pain limiting sleep Short Term Goal (STG) Pt able to position in bed comfortably to go to sleep. STG Duration 12/23/17 (3 weeks) Inventory Control/Shipping Receiving Goal (LTG) Increase pelvic/trunk stability to improve pt's tolerance to sleep and improved tolerance to static positioning in bed. LTG Duration 01/13/18 (6 weeks) Two Impairment Difficulty dressing (donning pants) due to poor hip mobility. Short Term Goal (STG) Pt educated in HEP to improve hip mobility for ease of donning pants. STG Duration 12/23/17 (3 weeks) One Impairment Patient lacks appropriate HEP Inventory Control/Shipping Receiving Goal (LTG) Pt educated in self care HEP for pelvic/trunk stability. LTG Duration 01/13/18 (6 weeks) Assessment Summary Assessment Pt BP was normal: 124/82. Pt better after therapy with mild reduction in pain. The pt tolerated STM much better after ice massage. Physical Therapy Plan Frequency and Duration Frequency of Treatment 2x/Week Plan of Care Start Date 12/03/17 Plan of Care End Date 01/14/18 Next Visit Focus/Plan Next Note Type Treatment Note Next Visit Plan Take BP/HR to start. Discuss posturing and issue handout. Discuss Pool therapy option. Progress Pelvic and core stabilization in private room if needed (TA strengthening, LB flexion stretching), f/b trunk flex stretching. End with cryotherapy or sitting STM of LB/SIJ & manual mob of sacrum into extension.
--- NOTE | 2017-12-27 15:10 | PT.OPDS ---
Current Diagnoses Other specified related conditions, unspecified trimester (12/17/17) state, incidental (12/17/17) Provider Visit Care Team Role Provider Type Reyna Lovett MD Attending Provider Non-Staff Specialty: Medical Address: [facility] [place], [address] Email: Visit Number Visit Number 4 Discharge Summary PT-OP-B Current Condition Start: 12/03/17 09:28 Freq: Status: Active Protocol: Document 12/03/17 10:35 LRN (Rec: 12/03/17 12:29 LRN [id number]) Current Condition History of Current Condition Onset Date August 2017 Current Complaints Pt c/o sharp pains down the back of the legs, bilaterally. 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 The pain progressed from intermittent pain that alternated from side to side ( depending which side was on top in sidelie with the painful side on top) to now constant sharp low back pain. She is currently on maternity leave from her job and reports being on light duty. She has a 3.5 yr old son that she doesn't lift and carry. With her 1st she had a 1st degree tear, but no pain and stress incontinence. Prior Treatments and Tests She reports using a Belly Support brace, using heating pads, massages, and self stretches. She sleeps with a body pillow that helps some. Her self treatments provide pain relief for 2-3 days. She has taken antibiotics for UTI's. Treatment Goals Patient/Caregiver Goals Pt goal is to decrease the pain and sleep a little longer . Be able to turn with less pain. She can sleep 1-3 hours with sleep interruption due to both pain and the need to urinate. Prior Functional Status Baseline Function- ADL's Independent Baseline Function- Mobility Independent Baseline Function- Gait ~1/4 mile prior to onset of LBP and Webb Henderson contractions. Baseline Function- Recreation/Hobbies Home program of stretches. Baseline Function- Other Needs help putting pants on. Current Functional Impairments (Reported) Functional Limitations- ADL's Sleeping, sits 1/2 - 1 hr, stand 1 hr to cook morning, needs help with donning pants. Functional Limitations- Mobility/Gait Can walk maximally ~1/4 mile. Functional Limitations- Work/School Currently on maternity leave due to her pain. 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 Lives in house with 13-14 stairs, with railing, and must stop 1/[address] to rest. Mother of a 3 yr old son. PT-OP-T Assessment and Plan Start: 12/03/17 09:28 Freq: Status: Active Protocol: Document 12/27/17 15:07 LRN (Rec: 12/27/17 15:09 LRN [id number]) Physical Therapy Assessment Assessment Summary Assessment Goals not met. Pt discharged early due to being placed on bedrest. No further therapy planned. Thank you for your physical therapy referral. Physical Therapy Plan Discharge Physical Therapy Discharge Reasons Change in Medical Status Discharge Comments Pt placed on bedrest. Pt is being discharged from physical therapy.
== END 2018-04-14 16:27 ==
LOC: PHYS 09:00
PROVIDERS: Visit Provider Obstetrics & Gynecology
DX: O26.899 Other specified pregnancy related conditions, unspecified trimester (principal); Z33.1 Pregnant state, incidental
CPT/HCPCS: 97010; 97110; 97140; 97163

== ENCOUNTER → 2020-09-05 17:41 | Outpatient (CLI) | payer OTHER, SELFPAY ==
--- NOTE | 2020-09-05 | DI.MRI.S_ITS ---
PROCEDURE: MR KNEE LT WO CON INDICATIONS: Unspecified superficial injury of left knee TECHNIQUE: Noncontrast sagittal PD fast spin echo and T2 fast spin echo with fat saturation, sagittal 3-D FLASH with fat saturation; coronal T1 spin echo and PD fast spin echo with fat saturation, and axial PD fast spin echo with fat saturation through the knee. COMPARISON: None. FINDINGS: Menisci: Lateral meniscus appears intact Complex tear involving the body and posterior horn of the medial meniscus with abnormal signal extending to the superior and inferior articular surfaces as well as the periphery for example image 11/8. Cruciate ligaments: Anterior cruciate ligament not seen and presumably ruptured although this finding technically age indeterminate. The PCL appears intact. Medial structures: There is medial bowing of the medial collateral ligament, with mild internal signal changes and no complete rupture. There is adjacent soft tissue edema. The appearance could reflect reactive changes to medial compartment pathology, versus low-grade sprain of the MCL. Pes anserinus tendons appear grossly unremarkable. Semimembranosus tendon appears intact. Lateral structures: The lateral collateral ligament demonstrates thickening and intrasubstance signal change in keeping with low grade sprain, statistically chronic, although technically age indeterminate. Biceps femoris tendon appears intact. Popliteus tendon grossly unremarkable. Iliotibial band appears intact. Anterior structures: Quadriceps tendon intact. Medial and lateral patellofemoral ligaments intact. There is mild patellar tendinopathy. Prepatellar and superficial infrapatellar subcutaneous edema/fluid. Bones and cartilage: Marrow: No focal marrow contusion or discrete low signal fracture line. There is edema within the proximal soleus muscle suggestive of acute strain. Medial compartment: Areas of full-thickness cartilage loss overlying the femoral condyle. There is diffuse partial-thickness loss of the tibial cartilage. Subchondral marrow edema present in the femoral condyle Lateral compartment: No definite focal cartilage defect seen. Patellofemoral compartment: Mild partial thickness loss of the cartilage overlying the lateral patellar facet. There is slight lateral patellar tilt and subluxation. Joint space: Small joint effusion Shirley's cyst measuring 6.2 cm in the cephalocaudal dimension. There is an intraluminal 1.4 cm loose body seen on image 18/6. IMPRESSION: Complex tear involving the body posterior horn the medial meniscus. Adjacent MCL changes as above Rupture of the ACL although technically age indeterminate finding. Severe degenerative joint disease most pronounced in the medial compartment. Associated subchondral marrow edema Small joint effusion Shirley's cyst with an intraluminal 1.4 cm loose body. Mild acute strain of the proximal soleus muscle. Dictated by: French Luis M.D. on 09/06/2020 at 9:01 Approved by: French Luis M.D. on 09/06/2020 at 9:11
== END ==
PROVIDERS: PCP Student in an Organized Health Care Education/Training Program; Referring Provider Family Medicine; Visit Provider Family Medicine
DX: S83.232A Complex tear of medial meniscus, current injury, left knee, initial encounter (principal); S83.512A Sprain of anterior cruciate ligament of left knee, initial encounter; M17.12 Unilateral primary osteoarthritis, left knee; M25.462 Effusion, left knee; M71.21 Synovial cyst of popliteal space [Baker], right knee; S76.812A Strain of other specified muscles, fascia and tendons at thigh level, left thigh, initial encounter; X58.XXXA Exposure to other specified factors, initial encounter
CPT/HCPCS: 73721